=== PATIENT | female | born 1965 | race Caucasian/White ===

== ENCOUNTER 2023-04-24 09:37 | Emergency (ER) | payer OTHER, SELFPAY ==
--- NOTE | ~2023-04-24 | CT_ITS ---
EXAMINATION: CT brain wo con INDICATION: Head injury COMPARISON: None TECHNIQUE: Standard unenhanced head CT. The dose-length product (DLP) was 605.33 mGy-cm. The mA was a djusted according to patient size. Iterative reconstruction technique was employed. FINDINGS: There is no intracranial hemorrhage, acute infarction, or abnormal mass lesion. The ventric les are normal. There is no abnormal mass effect or midline shift. The tipton-white matter differentiat ion is normal. The basal cisterns are patent. The orbits are normal. The paranasal sinuses, mastoids and calvarium are normal. IMPRESSION: 1. No acute intracranial abnormality. Reviewed, dictated and finalized at location []
[2023-04-24 09:59] VITALS: BP 151/96; PULSE 62; RESP 16; TEMP 36.6; O2SAT 100
--- NOTE | 2023-04-24 12:28 | ED.HA ---
HPI - Headache General Chief Complaint: Headache Stated Complaint: hi on 03/31 still has miles Time Seen by Provider: 04/24/23 10:49 History of Present Illness HPI Narrative: Patient is a 57-year-old female who presents ER with concern for concussion syndrome. Patient reports 1 month ago she bent over and struck her head on her dashboard. She saw lights. She then developed daily headache afterwards. She also has some photosensitivity. Worse with exertion. She called her primary care doctor to follow-up today but was told she needed a CT scan of her head before she could be evaluated. No additional concerns. Patient reports this would be her seventh concussion of all time. Related Data Allergies Allergy/AdvReac Type Severity Reaction Status Date / Time No Known Allergies Allergy Mild Verified 04/24/23 10:51 Review of Systems Constitutional: Constitutional: Denies chills, Denies fatigue and Denies fever(s) Eyes: Eyes: Denies change in vision and Reports photophobia Neurologic: Denies syncope, Reports headache(s), Denies focal weakness and Denies numbness PMFSH Past Medical History Medical History (Updated 04/24/23 @ 20:15 by Jarvis Oakes MD) History of glaucoma Surgical History Surgical History (Updated 04/24/23 @ 20:15 by Jarvis Oakes MD) No pertinent past surgical history Exam Narrative: GENERAL: Well-appearing, well-nourished, and in no acute distress. HEAD: Normocephalic, atraumatic. EYES: PERRL and EOMI. ENT: Mucous membranes moist. CHEST: Clear to auscultation. No respiratory distress. HEART: Regular rate and rhythm. Normal peripheral pulses. EXTREMITIES: Normal range of motion. No edema. NEURO: Alert and oriented x3. PSYCH: Normal mood and affect. Course Course Emergency Course: Discussed imaging results. Discharge home. Vital Signs Vital signs: Vital Signs Temperature 97.8 F 04/24/23 09:59 Pulse Rate 62 04/24/23 09:59 Respiratory Rate 16 04/24/23 09:59 Blood Pressure 151/96 H 04/24/23 09:59 Pulse Oximetry 100 04/24/23 09:59 Oxygen Delivery Room Air 04/24/23 09:59 Temperature 97.8 F 04/24/23 09:59 Pulse Rate 62 04/24/23 09:59 Respiratory Rate 16 04/24/23 09:59 Blood Pressure 151/96 H 04/24/23 09:59 Pulse Oximetry 100 04/24/23 09:59 Oxygen Delivery Room Air 04/24/23 09:59 MDM - Headache Imaging Data Radiologist's impression: ITS Impressions Head CT 04/24/23 11:15 IMPRESSION: 1. No acute intracranial abnormality. Discharge Plan Discharge Clinical Impression: Postconcussion syndrome Patient Disposition: Home, Self-Care Condition: Stable Instructions: Post Concussion Syndrome (ED) Additional Instructions: Return to the ER if you lose consciousness, you cannot keep down food or water, you have new focal numbness or weakness to an arm or leg, you have additional concerns. Prescriptions: New ondansetron 4 mg tablet,disintegrating 4 mg PO Q6H PRN (Reason: nausea and vomiting) Qty: 10 0RF Follow-up/Referrals: LEEANN,[facility] [Primary Care Provider] - 1 Week Lula Kemp MD [Physician] - 1 Week
== END 2023-04-24 12:40 | disposition home or self-care (01) ==
PROVIDERS: Emergency Provider Emergency Medicine; PCP Nurse Practitioner Family
DX: S09.90XA Unspecified injury of head, initial encounter (principal); F07.81 Postconcussional syndrome; W22.09XA Striking against other stationary object, initial encounter
CPT/HCPCS: 70450; 99284